=== PATIENT | female | born 1980 | race Caucasian/White ===

== ENCOUNTER 2017-01-22 10:28 | Emergency (ER) | payer MEDICAID ==
[~2017-01-22] VITALS: Ht 152.4 cm; Wt 63.0 kg
[~2017-01-22 10:28] MED LIST: ACET500C5 PO; CYCL-319 PO; NAPR-260 PO; TRAM50TA2 PO; [UNRECOGNIZED DRUG - REMARK]
[2017-01-22 10:29] VITALS: Ht 152.4 cm; Wt 63.0 kg
[2017-01-22] MEDS ORDERED: KETOROLAC 60 MG INJ IM STA (11:17)
[2017-01-22] MEDS ORDERED: CYCL-319 PO (13:12)
[2017-01-22] MEDS ORDERED: IBUP-1542 PO (13:12)
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
== END 2017-01-22 13:32 | disposition home or self-care (01) ==
LOC: FTE 10:28
DX: M54.5 Low back pain (principal)
CPT/HCPCS: 96372; J1885